=== PATIENT | male | born 1980 | race Caucasian/White ===

== ENCOUNTER 2023-12-13 02:33 | Inpatient (IN) | payer OTHER ==
[2023-12-13 04:16] LABS: #Basophils Less than 0.03 10x3/uL (0.0-0.2); #Eosinphils Less than 0.03 10x3/uL (0.0-0.7); %Basophils 0.2 % (0.0-1.0); %Eosinophils 0.1 % (0.0-10.0); %Lymphocytes 24.2 % (21.0-51.0); %Monocytes 13.7 % (0.0-10.0); %Neutrophils 60.3 % (42.0-75.0); Hematocrit 43.3 % (42.0-52.0); Hemoglobin 15.5 g/dL (14.0-18.0); Mean Corpuscular HGB CONC 35.8 g/dL (32.0-36.0); Mean Corpuscular Hemoglobin 31.8 pg (27.0-31.0); Mean Corpuscular Volume 88.7 fL (78.0-98.0); Mean Platelet Volume 9.9 fL (7.4-10.4); Platelet Count 285 10x3/uL (130-400); RBC Distribution Width 12.9 % (11.5-14.5); Red Blood Cell (RBC) Count 4.88 mill/uL (4.70-6.10)
[2023-12-13 04:33] LABS: Alcohol 159.8 mg/dL (Less than 10)
[2023-12-13 04:35] LABS: ALT (SGPT) 87 U/L (8-55); AST (SGOT) 52 U/L (5-34); Alkaline Phosphatase 49 U/L (40-110); Anion Gap 20 mmol/L (10-20); BUN (Urea Nitrogen) 13 mg/dL (8.9-20.6); Bilirubin, Total 0.5 mg/dL (0.2-1.2); Calc. Creatinine Clearance 0 mL/min (70-130); Calcium 9.7 mg/dL (7.8-10.44); Carbon Dioxide 19 mmol/L (22-29); Chloride 102 mmol/L (98-107); Estimated GFR 109; Globulin 3.5 g/dL (2.4-3.5); Glucose 111 mg/dL (70-105); Lipase 23 U/L (8-78); Potassium 3.1 mmol/L (3.5-5.1); Protein, Total 7.5 g/dL (6.0-8.3); Sodium 138 mmol/L (136-145)
[2023-12-13 04:37] LABS: INR-International Normal Ratio 0.9; Prothrombin Time 12.4 sec (12.0-14.7)
[2023-12-13 04:41] LABS: Troponin I Less than 0.010 ng/mL (< 0.028)
[2023-12-13] MEDS ORDERED: Lidocaine 1% w/Epinephrine 1:100K 20 ML VIAL ONE (05:52)
[2023-12-13] MEDS ORDERED: Potassium Chloride 20 MEQ TAB ONE (07:41)
[2023-12-13 08:43] LABS: Bacteria/HPF None Seen HPF (None Seen); Bilirubin Negative (Negative); Blood, Urine 2+ (Negative); CAUTI Indications for Culture Dysuria,urgency,freq; Clarity Clear (Clear); Glucose, Urine (Dipstick) Normal (Negative); Ketone, Urine Negative (Negative); Leukocyte Negative Leu/uL (Negative); Nitrite Negative (Negative); Protein, Urine (Dipstick) 20 mg/dL (Neg-Trace); Specific Gravity, Urine 1.031 (1.002-1.036); Squamous Epithelial None Seen HPF (0-3); Urobilinogen Normal mg/dL (Less than 2); pH, Urine 6.5 (5.0-9.0)
[2023-12-13 08:49] LABS: Urine Culture Reflex No No
[2023-12-13] MEDS ORDERED: Ondansetron PF 4 MG/2 ML Vial IVP PRN (09:20)
[2023-12-13] MEDS ORDERED: Glucagon 1 MG/ML KIT IM PRN (09:20)
[2023-12-13] MEDS ORDERED: Dextrose 50% Abboject 50 ML SYRINGE SLOW IVP PRN (09:20)
[2023-12-13] MEDS ORDERED: hydrALAZINE 20 MG/ML VIAL SLOW IVP PRN (09:20)
[2023-12-13] MEDS ORDERED: Ondansetron ODT 4 MG TAB PO PRN (09:20)
[2023-12-13] MEDS ORDERED: Dextrose 5% in Water 1,000 ML IV PRN (09:20)
[2023-12-13] MEDS ORDERED: Electrolyte Replacement Protocol 1 EACH FS SCH (10:00)
[2023-12-13 10:58] VITALS: BMI 30.7
[2023-12-13 12:20] LABS: Lactic Acid 2.4 mmol/L (0.5-2.2)
[2023-12-13] MEDS: Magnesium 2 GM/50 ML(in water) 2 GM in Premix 1 BAG IVPB SCH (12:25)
[2023-12-13] MEDS: Acetaminophen 325 MG TAB PO PRN (13:40)
[2023-12-13] MEDS: Lactated Ringer's 1,000 ML IV SCH (13:40)
[2023-12-13] MEDS: Morphine 4 MG/ML VIAL SLOW IVP PRN (13:40)
[2023-12-13] MEDS ORDERED: Iopamidol-370 76% 500 ML MDV (1 ML CHARGE) ONE ×2 (13:59→14:05)
[2023-12-13] MEDS: TETANUS, DIPHTHERIA TOX,ADULT (TDVAX) 0.5 ML VIAL IM ONE (16:49)
[2023-12-13] MEDS: Methocarbamol 500 MG TAB PO PRN (17:03)
[2023-12-13] MEDS: traMADol HCl 50 MG TAB PO PRN (17:04)
[2023-12-13] MEDS: Famotidine 20 MG TAB PO SCH (19:38)
[2023-12-13] MEDS: Valproic Acid 250 mg/5 ml UD Cup PO SCH (20:44)
[2023-12-14] MEDS ORDERED: Lorazepam 1 MG TAB PO PRN
[2023-12-14 06:05] LABS: #Basophils Less than 0.03 10x3/uL (0.0-0.2); #Eosinphils Less than 0.03 10x3/uL (0.0-0.7); %Basophils 0.2 % (0.0-1.0); %Eosinophils 0.1 % (0.0-10.0); %Lymphocytes 15.3 % (21.0-51.0); %Monocytes 14.5 % (0.0-10.0); %Neutrophils 69.5 % (42.0-75.0); Hematocrit 42.3 % (42.0-52.0); Hemoglobin 14.8 g/dL (14.0-18.0); Mean Corpuscular Hemoglobin 31.9 pg (27.0-31.0); Mean Corpuscular Volume 91.2 fL (78.0-98.0); Mean Platelet Volume 9.8 fL (7.4-10.4); Platelet Count 196 10x3/uL (130-400); RBC Distribution Width 13.2 % (11.5-14.5); Red Blood Cell (RBC) Count 4.64 mill/uL (4.70-6.10)
[2023-12-14 06:49] LABS: Anion Gap 14 mmol/L (10-20); BUN (Urea Nitrogen) 8 mg/dL (8.9-20.6); Calc. Creatinine Clearance 194 mL/min (70-130); Calcium 9.1 mg/dL (7.8-10.44); Carbon Dioxide 26 mmol/L (22-29); Chloride 96 mmol/L (98-107); Estimated GFR 117; Glucose 102 mg/dL (70-105); Potassium 3.4 mmol/L (3.5-5.1); Sodium 133 mmol/L (136-145)
[2023-12-14] MEDS ORDERED: Ondansetron ODT 4 MG TAB PO PRN (07:45)
[2023-12-14] MEDS: Atorvastatin Calcium 20 MG TAB PO SCH (08:28)
[2023-12-14] MEDS: Chlorthalidone 25 MG TAB PO SCH (08:28)
[2023-12-14] MEDS: Folic Acid 1 MG TAB PO SCH (08:28)
[2023-12-14] MEDS: Multivit, Therapeutic 1 TAB PO SCH (08:28)
[2023-12-14] MEDS: Aspirin 325 MG TAB PO SCH (08:28)
[2023-12-14] MEDS: Atenolol 50 MG TAB PO SCH (08:28)
[2023-12-14] MEDS: Potassium Chloride 20 MEQ TAB PO SCH (08:28)
[2023-12-14] MEDS: Thiamine HCl 200 MG/2 ML VIAL SLOW IVP SCH (08:29)
[2023-12-14] MEDS: Lorazepam 1 MG TAB PO SCH (08:29)
[2023-12-14] MEDS ORDERED: Valproic Acid 250 MG CAP PO SCH (09:00)
[2023-12-15] MEDS: Lorazepam 1 MG TAB PO SCH (02:39)
[2023-12-15] MEDS ORDERED: Lorazepam 1 MG TAB PO PRN (07:45)
[2023-12-16] MEDS: Lorazepam 2 MG/ML VIAL IM PRN (02:39)
[2023-12-16] MEDS: Lorazepam 0.5 MG TAB PO SCH (05:16)
[2023-12-16] MEDS ORDERED: Lorazepam 1 MG TAB PO PRN (07:45)
[2023-12-16 11:30] VITALS: BP 133/82; TEMP 98.1
[2023-12-17] MEDS ORDERED: Lorazepam 0.5 MG TAB PO PRN (06:00)
[2023-12-17] MEDS ORDERED: Thiamine 100 MG TAB PO SCH (09:00)
== END 2023-12-16 15:21 | disposition home or self-care (01) | DRG 552 ==
LOC: ERS 02:33 → SURG A 09:25
PROVIDERS: ADMIT Specialist; ATTEND Specialist
PROC: 0HQ1XZZ Repair Face Skin, External Approach (ICD-10-PCS; principal; 2023-12-13)
PROC: 0HQMXZZ Repair Right Foot Skin, External Approach (ICD-10-PCS; 2023-12-13)
PROC: 0HQDXZZ Repair Right Lower Arm Skin, External Approach (ICD-10-PCS; 2023-12-13)
PROC: 0HQGXZZ Repair Left Hand Skin, External Approach (ICD-10-PCS; 2023-12-13)
DX: S12.100A Unspecified displaced fracture of second cervical vertebra, initial encounter for closed fracture (principal); S32.019A Unspecified fracture of first lumbar vertebra, initial encounter for closed fracture; S32.039A Unspecified fracture of third lumbar vertebra, initial encounter for closed fracture; S32.049A Unspecified fracture of fourth lumbar vertebra, initial encounter for closed fracture; S32.029A Unspecified fracture of second lumbar vertebra, initial encounter for closed fracture; S32.059A Unspecified fracture of fifth lumbar vertebra, initial encounter for closed fracture; I10 Essential (primary) hypertension; E78.5 Hyperlipidemia, unspecified; F31.9 Bipolar disorder, unspecified; S61.012A Laceration without foreign body of left thumb without damage to nail, initial encounter; S51.011A Laceration without foreign body of right elbow, initial encounter; S01.111A Laceration without foreign body of right eyelid and periocular area, initial encounter; S01.01XA Laceration without foreign body of scalp, initial encounter; I99.8 Other disorder of circulatory system; F17.220 Nicotine dependence, chewing tobacco, uncomplicated; V47.5XXA Car driver injured in collision with fixed or stationary object in traffic accident, initial encounter; Y93.I9 Activity, other involving external motion; Y92.410 Unspecified street and highway as the place of occurrence of the external cause; Z79.899 Other long term (current) drug therapy
CPT/HCPCS: 12005; 12013; 36415; 70450; 70486; 70498; 71045; 71260; 72040; 72100; 72125; 72170; 74177; 80048; 80053; 80307; 81001; 83605; 83690; 83735; 84484; 85025; 85610; 85730; 86850; 86900; 86901; 93005; 96360; 96361; J2060; J2270; J3411; J3475; J7120; Q9967

== ENCOUNTER 2024-02-27 00:02 | Inpatient (IN) | payer OTHER ==
[2024-02-27 02:23] LABS: Hematocrit 30.8 % (42.0-52.0); Mean Corpuscular HGB CONC 35.7 g/dL (32.0-36.0); Mean Corpuscular Hemoglobin 31.5 pg (27.0-31.0); Mean Corpuscular Volume 88.3 fL (78.0-98.0); Platelet Count 307 10x3/uL (130-400); RBC Distribution Width 12.3 % (11.5-14.5); Red Blood Cell (RBC) Count 3.49 mill/uL (4.70-6.10); White Blood Cell (WBC) Count 9.26 10x3/uL (4.8-10.8)
[2024-02-27 02:24] LABS: #Basophils 0.01 10x3/uL (0.0-0.2); #Monocytes 1.51 10x3/uL (0.11-0.59); #Neutrophils 6.69 10x3/uL (1.40-6.50); %Basophils 0.1 % (0.0-1.0); %Lymphocytes 10.2 % (21.0-51.0); %Monocytes 16.3 % (0.0-10.0); %Neutrophils 72.2 % (42.0-75.0)
[2024-02-27 02:25] LABS: Mean Platelet Volume 9.1 fL (7.4-10.4)
[2024-02-27 03:54] LABS: Albumin 3.2 g/dL (3.5-5.0); Calcium 10.1 mg/dL (7.8-10.44); Chloride 100 mmol/L (98-107); Potassium 3.9 mmol/L (3.5-5.1); Sodium 132 mmol/L (136-145)
[2024-02-27 03:55] LABS: Glucose 96 mg/dL (70-105); Protein, Total 8.2 g/dL (6.0-8.3)
[2024-02-27 03:56] LABS: Anion Gap 17 mmol/L (10-20); Carbon Dioxide 19 mmol/L (22-29)
[2024-02-27 03:58] LABS: Alkaline Phosphatase 98 U/L (40-110); Bilirubin, Total 0.8 mg/dL (0.2-1.2)
[2024-02-27 03:59] LABS: BUN (Urea Nitrogen) 12 mg/dL (8.9-20.6); Calc. Creatinine Clearance 0 mL/min (70-130); Estimated GFR 111
[2024-02-27 04:01] LABS: ALT (SGPT) 40 U/L (8-55); AST (SGOT) 27 U/L (5-34)
[2024-02-27] MEDS ORDERED: HYDROcodone/Acetaminophen 10/325 mg Tablet ONE (04:19)
[2024-02-27] MEDS ORDERED: fentaNYL 50 mcg/mL 1 mL Vial ONE (05:08)
[2024-02-27] MEDS ORDERED: Cefepime 2 GM VIAL ONE (05:08)
[2024-02-27] MEDS ORDERED: Morphine 4 MG/ML VIAL SLOW IVP PRN (09:17)
[2024-02-27] MEDS: Vancomycin (BATCH) 2 GM in Premix 1 BAG IVPB SCH (10:03)
[2024-02-27] MEDS ORDERED: Ondansetron PF 4 MG/2 ML Vial IVP PRN (10:54)
[2024-02-27] MEDS ORDERED: Loperamide HCl 2 MG CAP PO PRN (10:54)
[2024-02-27] MEDS: Nicotine 21 MG PATCH TD SCH (11:18)
[2024-02-27] MEDS: Acetaminophen 325 MG TAB PO SCH (11:19)
[2024-02-27] MEDS ORDERED: Iopamidol-370 76% 500 ML MDV (1 ML CHARGE) ONE (11:27)
[2024-02-27] MEDS: Cyclobenzaprine 10 MG TAB PO PRN (11:33)
[2024-02-27] MEDS: traMADol HCl 50 MG TAB PO PRN (11:33)
[2024-02-27] MEDS: HYDROcodone/Acetaminophen 10/325 mg Tablet PO PRN (13:24)
[2024-02-27 13:53] VITALS: BMI 31.4
[2024-02-27] MEDS: cefTRIAXone\\ROCEPHIN 2 GM in Sodium Chloride 0.9% 100 ML IVPB SCH (14:50)
[2024-02-27] MEDS: fentaNYL 12 mcg Patch TD SCH (17:22)
[2024-02-27] MEDS: Famotidine/PF 20 mg/2ml Vial SLOW IVP SCH (20:40)
[2024-02-27] MEDS: Valproic Acid 250 MG CAP PO SCH (20:40)
[2024-02-28] MEDS: Ketorolac Tromethamine 30 MG (1 mL) VIAL IVP PRN (08:58)
[2024-02-28] MEDS: Atenolol 50 MG TAB PO SCH (08:59)
[2024-02-28] MEDS: Atorvastatin Calcium 20 MG TAB PO SCH (09:00)
[2024-02-28] MEDS: Enoxaparin 40 MG (0.4 mL) SYRINGE SC SCH (09:00)
[2024-02-28] MEDS: Aspirin 325 MG TAB PO SCH (09:00)
[2024-02-28] MEDS: Chlorthalidone 25 MG TAB PO SCH (09:00)
[2024-02-28] MEDS ORDERED: ATENOLOL 100 MG PO SCH (09:00)
[2024-02-28 09:22] LABS: #Basophils Less than 0.03 10x3/uL (0.0-0.2); #Eosinphils Less than 0.03 10x3/uL (0.0-0.7); %Basophils 0.3 % (0.0-1.0); %Eosinophils 0.1 % (0.0-10.0); %Lymphocytes 13.1 % (21.0-51.0); %Neutrophils 70.3 % (42.0-75.0); Hematocrit 34.1 % (42.0-52.0); Hemoglobin 11.3 g/dL (14.0-18.0); Mean Corpuscular HGB CONC 33.1 g/dL (32.0-36.0); Mean Corpuscular Hemoglobin 30.5 pg (27.0-31.0); Mean Corpuscular Volume 91.9 fL (78.0-98.0); Mean Platelet Volume 9.3 fL (7.4-10.4); Platelet Count 340 10x3/uL (130-400); RBC Distribution Width 12.5 % (11.5-14.5); Red Blood Cell (RBC) Count 3.71 mill/uL (4.70-6.10)
[2024-02-28 09:42] LABS: ALT (SGPT) 30 U/L (8-55); AST (SGOT) 18 U/L (5-34); Albumin 2.9 g/dL (3.5-5.0); Alkaline Phosphatase 96 U/L (40-110); Anion Gap 16 mmol/L (10-20); BUN (Urea Nitrogen) 13 mg/dL (8.9-20.6); Bilirubin, Total 0.5 mg/dL (0.2-1.2); Calc. Creatinine Clearance 163 mL/min (70-130); Calcium 9.7 mg/dL (7.8-10.44); Carbon Dioxide 23 mmol/L (22-29); Chloride 102 mmol/L (98-107); Estimated GFR 110; Globulin 5.2 g/dL (2.4-3.5); Glucose 105 mg/dL (70-105); Potassium 4.1 mmol/L (3.5-5.1); Protein, Total 8.1 g/dL (6.0-8.3); Sodium 137 mmol/L (136-145)
[2024-02-29 10:36] LABS: Hemoglobin 11.7 g/dL (14.0-18.0); Red Blood Cell (RBC) Count 3.86 mill/uL (4.70-6.10)
[2024-02-29 10:37] LABS: #Basophils 0.03 10x3/uL (0.0-0.2); #Eosinphils Less than 0.03 10x3/uL (0.0-0.7); %Basophils 0.4 % (0.0-1.0); %Eosinophils 0.1 % (0.0-10.0); %Lymphocytes 20.3 % (21.0-51.0); %Monocytes 14.3 % (0.0-10.0); %Neutrophils 63.2 % (42.0-75.0); Hematocrit 35.3 % (42.0-52.0); Mean Corpuscular HGB CONC 33.1 g/dL (32.0-36.0); Mean Corpuscular Hemoglobin 30.3 pg (27.0-31.0); Mean Corpuscular Volume 91.5 fL (78.0-98.0); Mean Platelet Volume 9.5 fL (7.4-10.4); Platelet Count 403 10x3/uL (130-400); RBC Distribution Width 12.6 % (11.5-14.5)
[2024-02-29 11:05] LABS: Anion Gap 17 mmol/L (10-20); BUN (Urea Nitrogen) 10 mg/dL (8.9-20.6); Calc. Creatinine Clearance 176 mL/min (70-130); Calcium 10.1 mg/dL (7.8-10.44); Carbon Dioxide 25 mmol/L (22-29); Chloride 100 mmol/L (98-107); Estimated GFR 112; Glucose 104 mg/dL (70-105); Potassium 3.6 mmol/L (3.5-5.1); Sodium 138 mmol/L (136-145)
[2024-02-29] MEDS: Morphine 4 MG/ML VIAL SLOW IVP SCH (13:22)
[2024-02-29] MEDS: Morphine 4 MG/ML VIAL SLOW IVP PRN (19:51)
[2024-03-01] MEDS: HYDROcodone/Acetaminophen 10/325 mg Tablet PO PRN (00:07)
[2024-03-01] MEDS: Potassium Chloride 20 MEQ TAB PO SCH (11:06)
[2024-03-01 19:22] LABS: #Basophils Less than 0.03 10x3/uL (0.0-0.2); #Eosinphils Less than 0.03 10x3/uL (0.0-0.7); %Basophils 0.2 % (0.0-1.0); %Eosinophils 0.2 % (0.0-10.0); %Lymphocytes 16.8 % (21.0-51.0); %Monocytes 11.2 % (0.0-10.0); %Neutrophils 70.5 % (42.0-75.0); Mean Corpuscular HGB CONC 33.3 g/dL (32.0-36.0); Mean Corpuscular Hemoglobin 31.2 pg (27.0-31.0); Mean Corpuscular Volume 93.5 fL (78.0-98.0); Mean Platelet Volume 9.3 fL (7.4-10.4); Platelet Count 429 10x3/uL (130-400); RBC Distribution Width 12.4 % (11.5-14.5); Red Blood Cell (RBC) Count 3.85 mill/uL (4.70-6.10)
[2024-03-01 19:41] LABS: Anion Gap 18 mmol/L (10-20); BUN (Urea Nitrogen) 10 mg/dL (8.9-20.6); Calc. Creatinine Clearance 159 mL/min (70-130); Calcium 10.3 mg/dL (7.8-10.44); Carbon Dioxide 23 mmol/L (22-29); Chloride 102 mmol/L (98-107); Estimated GFR 109; Glucose 99 mg/dL (70-105); Potassium 4.1 mmol/L (3.5-5.1); Sodium 139 mmol/L (136-145)
[2024-03-02 16:44] VITALS: BP 126/69; TEMP 97.8
== END 2024-03-02 17:44 | disposition home or self-care (01) | DRG 603 ==
LOC: ERS 00:02 → T4-A 09:11
PROVIDERS: ADMIT Student in an Organized Health Care Education/Training Program; ATTEND Internal Medicine
DX: L03.116 Cellulitis of left lower limb (principal); I10 Essential (primary) hypertension; E78.5 Hyperlipidemia, unspecified; F17.220 Nicotine dependence, chewing tobacco, uncomplicated; Z88.5 Allergy status to narcotic agent; Z79.899 Other long term (current) drug therapy; Z79.82 Long term (current) use of aspirin; Z88.1 Allergy status to other antibiotic agents; Z88.0 Allergy status to penicillin; V89.2XXA Person injured in unspecified motor-vehicle accident, traffic, initial encounter
CPT/HCPCS: 36415; 36416; 80048; 80053; 83605; 85025; 87040; 96365; 96366; 96375; J0692; J0696; J1650; J1885; J2272; J3010; J3370; J3490; Q9967